=== PATIENT | male | born 1945 | race Caucasian/White ===

== ENCOUNTER 2017-09-02 05:48 | Day surgery (SDC) | payer MEDICARE, OTHER ==
[2017-09-02] MEDS ORDERED: DIPRIVAN 200 MG/20 ML IV ONE (05:49)
[2017-09-02] MEDS ORDERED: Ketamine HCl 50 MG/ML IV ONE (05:49)
[2017-09-02] MEDS ORDERED: Lactated Ringers 1,000 ML IV ONE ×2 (06:23→08:07)
[2017-09-02] MEDS ORDERED: Lactated Ringers 1,000 ML IV SCH (06:30)
[2017-09-02 08:26] VITALS: O2SAT 96
[2017-09-02 08:57] VITALS: BP 112/73; PULSE 65
--- NOTE | 2017-09-02 12:38 | OP ---
SURGERY DATE/TIME: 09/02/2017 0721 PREOPERATIVE DIAGNOSIS: Positive Cologuard test. POSTOPERATIVE DIAGNOSES: 1) Large rectal polyp. 2) Diverticulosis. PROCEDURE: Colonoscopy. SURGEON: Kalin Jo M.D. ANESTHESIA: MAC by Antoni Kidd CRNA. ESTIMATED BLOOD LOSS: Minimal. SPECIMENS: Hot snare polypectomy of rectal polyp. DESCRIPTION OF PROCEDURE: After informed written consent was obtained, the patient was taken to the endoscopy suite. The patient had a positive Cologuard test but no other symptoms. No change in bowel habits or blood in the stool, etc. He was taken to the endoscopy suite and underwent monitored anesthesia. Digital rectal exam showed normal sphincter tone and no internal lesions. The scope was inserted into the rectum and sequentially the entire colonic mucosa was traversed. The level of cecum was reached and verified with direct visualization of ileocecal valve. Upon withdrawal prep was noted to be fair to poor in some areas. There were diffuse scattered diverticulosis. Upon withdrawal reaching the proximal rectum just below the third valve of [place], there was a large pedunculated polyp which was grasped with a snare and cauterized at the base and removed in its entirety. The polyp was retrieved and sent for pathology. No other obvious lesions were present. Retroflexion was performed prior to withdrawal and showed no internal lesions. The scope was removed and the patient was transferred to the recovery room in excellent condition.
== END 2017-09-02 08:58 | disposition home or self-care (01) ==
LOC: SDC 05:48
PROVIDERS: ATTEND Family Medicine
DX: K62.1 Rectal polyp (principal); K57.90 Diverticulosis of intestine, part unspecified, without perforation or abscess without bleeding; I10 Essential (primary) hypertension
CPT/HCPCS: 88305; J2704

== ENCOUNTER 2020-04-24 06:19 | Day surgery (SDC) | payer MEDICARE, OTHER ==
[2020-04-24] MEDS ORDERED: Lactated Ringers 1,000 ML IV SCH (06:30)
[2020-04-24] MEDS ORDERED: DIPRIVAN 200 MG/20 ML IV ONE (07:42)
[2020-04-24 09:22] VITALS: BP 115/72; PULSE 58; O2SAT 95
--- NOTE | 2020-04-24 10:48 | OP ---
SURGERY DATE/TIME: 04/24/2020 0800 PREOPERATIVE DIAGNOSIS: History of colon polyps. POSTOPERATIVE DIAGNOSIS: Severe sigmoid diverticulosis otherwise normal colon. PROCEDURE: Colonoscopy. SURGEON: Dr. Holloway. ANESTHESIA: MAC. Medications given by anesthesia department. HISTORY: The patient is a 74 year-old white male patient presenting now for repeat colonoscopy due to the presence of colon polyp three years ago. The patient was appraised of the risks of the procedure including the risk of perforation, phlebitis, untoward reaction to medication, bleeding and missed lesions. The patient verbalized his understanding and desired to have the procedure performed. DESCRIPTION OF PROCEDURE: The patient was given the medications by the anesthesia department. He had continuous pulse oximetry, ECG monitoring, intermittent blood pressure monitoring and tidal CO2 monitoring during the examination. He was placed in the left lateral decubitus position. A digital rectal examination was performed and revealed normal anal sphincter tone, no masses and normal prostate. The flexible Olympus pediatric colonoscope was used to intubate the rectum. A view of the colon was developed sequentially to the cecum. Upon insertion and withdrawal was noted severe sigmoid diverticulosis. No mucosal lesions however otherwise were encountered. The scope was removed from the patient who tolerated the procedure well and was sent back to OP recovery in good condition. The prep was noted to be good other than sigmoid colon which did have semisolid and solid stool in around the diverticula.
== END 2020-04-24 09:25 | disposition home or self-care (01) ==
LOC: SDC 06:19
PROVIDERS: ATTEND Family Medicine
DX: Z09 Encounter for follow-up examination after completed treatment for conditions other than malignant neoplasm (principal); Z86.010 Personal history of colon polyps; K57.30 Diverticulosis of large intestine without perforation or abscess without bleeding
CPT/HCPCS: 99100; J2704

== ENCOUNTER 2020-04-26 05:45 | Observation (INO) | payer MEDICARE, OTHER ==
[2020-04-26] MEDS ORDERED: NITRO-BID 2% UD PACKETS TOP ONE (05:55)
[2020-04-26] MEDS ORDERED: BABY ASPIRIN 81 MG CHEW PO ONE (05:55)
[2020-04-26] MEDS ORDERED: NITRO-BID 2% UD PACKETS ONE (06:02)
--- NOTE | 2020-04-26 06:16 | ERPHSYRPT ---
<JOAN JENSEN - Last Filed: 04/26/20 07:10> - History of Present Illness Time Seen by Provider: 04/26/20 06:00 Historian: patient Exam Limitations: no limitations Patient Subjective Stated Complaint: pt states, "chest pain that woke me up from sleep" Triage Nursing Assessment: pt arrived to ER, ambulated to rm 6, c/o chest pain to lt upper chest area, which woke him up from sleep. Pt denies pain radiating anywhere. states pain is a squeezing pressure pain. Lungs clear, heart tones reg. No edema noted. Physician History: Patient is a 74-year-old male presents to our ED with complaints of chest pain. Chest pain started early this morning. Chest pain awoke patient from his sleep. Chest pain described as a pressure like squeezing sensation in his mid chest and left upper chest. Patient took Tums and [place] and 1 baby aspirin prior to arrival. Patient did not feel nauseous at the time that chest pain started. Patient states he is feeling somewhat nauseous at this time. Since patient's arrival to our ED pain is now radiating to patient's back. Symptoms are mild to moderate in intensity. No specific worsening or improving factors. Patient denies history of the same. Patient is not a smoker. Patient has a history of hypercholesterolemia. Patient's primary care doctor is Amie. Patient voices no other complaints concerns at this time. Timing/Duration: today Activities at Onset: sleep Quality: pressure Location: substernal Chest Pain Radiation: back Severity of Pain-Max: moderate Severity of Pain-Current: mild Modifying Factors: Improves With: nothing Associated Symptoms: nausea, No abdominal pain, No shortness of breath, No s yncope, No dizziness Prior Chest Pain/Cardiac Workup: no prior chest pain Nitro Today/Relief: no nitro taken today Aspirin Treatment Today: 81 mg x 1 Allergies/Adverse Reactions: Vfbddaa-Sev-Lls Reductase Inhibitor Adverse Reaction (Severe, Verified 04/26/20 05:58) severe cramping of calves Home Medications: Losartan/Hydrochlorothiazide [Losartan-Hctz 50-12.5 mg Tab] 1 each PO DAILY 08/11/17 [History] Omeprazole 20 mg PO DAILY 04/20/20 [History] hydroCHLOROthiazide [Hydrochlorothiazide] 12.5 mg PO DAILY 04/20/20 [History] Hx Tetanus, Diphtheria Vaccination/Date Given: Yes Hx Influenza Vaccination/Date Given: Yes Hx Pneumococcal Vaccination/Date Given: No Immunizations Up to Date: Yes Travel Risk - International Travel Have you traveled outside of the country in past 3 weeks: No - Coronavirus Screening Are you exhibiting any of the following symptoms?: No Close contact with a COVID-19 positive Pt in past 14-21 Days: No - Review of Systems Constitutional: No Symptoms, No Fever, No Chills Eyes: No Symptoms Ears, Nose, & Throat: No Symptoms Respiratory: No Symptoms, No Cough, No Dyspnea Cardiac: No Symptoms, No Chest Pain, No Edema, No Syncope Abdominal/Gastrointestinal: No Symptoms, No Abdominal Pain, No Nausea, No Vomiting, No Diarrhea Genitourinary Symptoms: No Symptoms, No Dysuria Musculoskeletal: No Symptoms, No Back Pain, No Neck Pain Skin: No Symptoms, No Rash Neurological: No Symptoms, No Dizziness, No Focal Weakness, No Sensory Changes Psychological: No Symptoms Endocrine: No Symptoms Hematologic/Lymphatic: No Symptoms Immunological/Allergic: No Symptoms All Other Systems: Reviewed and Negative - Past Medical History Pertinent Past Medical History: Yes Neurological History: No Pertinent History ENT History: No Pertinent History Cardiac History: High Cholesterol, Hypertension Respiratory History: Sleep Apnea Endocrine Medical History: No Pertinent History Musculoskeletal History: No Pertinent History GI Medical History: GERD History: No Pertinent History Psycho-Social History: No Pertinent History Male Reproductive Disorders: No Pertinent History Other Medical History: hx polyps - Past Surgical History Past Surgical History: Yes Neuro Surgical History: No Pertinent History Cardiac: No Pertinent History Respiratory: No Pertinent History Gastrointestinal: Appendectomy Genitourinary: No Pertinent History Musculoskeletal: Amputation, Other Male Surgical History: No Pertinent History Other Surgical History: back, left foot toe removed, rt knee, left hand, appendix, colonoscopy - Social History Smoking Status: Former smoker Exposure to second hand smoke: No Drug Use: marijuana Patient Lives Alone: No - Physical Exam General Appearance: no apparent distress, alert Eye Exam: PERRL/EOMI, eyes nml inspection Ears, Nose, Throat Exam: normal ENT inspection, moist mucous membranes Neck Exam: normal inspection, non-tender, supple, full range of motion Respiratory Exam: normal breath sounds, lungs clear, No respiratory distress Cardiovascular Exam: regular rate/rhythm, normal heart sounds Gastrointestinal/Abdomen Exam: soft, No tenderness, No mass Back Exam: normal inspection, No CVA tenderness, No vertebral tenderness Extremity Exam: normal inspection, normal range of motion Neurologic Exam: alert, oriented x 3, cooperative, normal mood/affect, sensation nml, No motor deficits Skin Exam: normal color, warm, dry SpO2 Interpretation: normal SpO2: 97 O2 Delivery: Room Air - Course Nursing assessment & vital signs reviewed: Yes EKG Interpreted by Me: RATE (68), Sinus Rhythm, NORMAL AXIS, NORMAL INTERVALS - Progress Progress: improved Air Movement: good Progress Note: Patient endorsed to Dr. Bruno at 07 100. D-dimer elevated. CTA chest ordered and pending. Initial troponin negative. Potassium 3.4. Oral potassium replacement ordered. Remaining work-up pending. Dr. Bruno to make final d isposition. 04/26/20 07:12 Blood Culture(s) Obtained: No Antibiotics given: No - Departure Clinical Impression: Chest pain, D-dimer, elevated, Hypokalemia Condition: Stable Critical Care Time: No Referrals: SAWYER VALLADARES [Primary Care Provider] - <JANE BRUNO - Last Filed: 04/26/20 09:48> - Nursing Vital Signs Nursing Vital Signs: Initial Vital Signs Temperature 97.2 F 04/26/20 05:45 Pulse Rate 70 04/26/20 05:45 Respiratory Rate 20 04/26/20 05:45 Blood Pressure 162/81 04/26/20 05:45 O2 Sat by Pulse Oximetry 97 04/26/20 05:45 Pain Scale Pain Intensity 5 Ordered Tests: Active Orders 24 hr Category Date Time Status Civil Cadd Technician STAT Care 04/26/20 05:56 Active EKG-ER Only STAT Care 04/26/20 05:55 Active IV Insertion STAT Care 04/26/20 05:55 Active Pulse Oximetry (ED) STAT Care 04/26/20 05:55 Active ABDOMEN AND PELVIS W CONTRAST [CT] Stat Exams 04/26/20 07:20 Completed CHEST 1 VIEW (PORTABLE) Stat Exams 04/26/20 05:56 Completed CHEST WITH CONTRAST [CT] Stat Exams 04/26/20 07:07 Completed CBC W DIFF Stat Lab 04/26/20 05:55 Completed CMP Stat Lab 04/26/20 05:55 Completed D-DIMER QUANTITATIVE Stat Lab 04/26/20 05:55 Completed NT PRO BNP Stat Lab 04/26/20 05:55 Completed TROPONIN Q3H Lab 04/26/20 05:55 Completed TROPONIN Q3H Lab 04/26/20 09:05 Completed TROPONIN Q3H Lab 04/26/20 12:00 Ordered TROPONIN Q3H Lab 04/26/20 15:00 Ordered TROPONIN Q3H Lab 04/26/20 18:00 Ordered Transfer Order Routine Transfer 04/26/20 Ordered Medication Summary Discontinued Medications Generic Name Dose Route Start Last Admin Trade Name Luciana PRN Reason Stop Dose Admin Aspirin 324 mg 04/26/20 05:55 04/26/20 06:05 Baby Aspirin 81 Mg Chew PO 04/26/20 05:56 Not Given STAT ONE Morphine Sulfate 4 mg 04/26/20 09:40 Morphine Sulfate 4 Mg Inj IV 04/26/20 09:41 STAT ONE Nitroglycerin 1 gm 04/26/20 05:55 04/26/20 06:06 Nitro-Bid 2% Ud Packets TOP 04/26/20 05:56 1 gm STAT ONE Administration Nitroglycerin Confirm 04/26/20 06:02 Nitro-Bid 2% Ud Packets Administered 04/26/20 06:03 Dose 1 gm .ROUTE .STK-MED ONE Ondansetron HCl 4 mg 04/26/20 06:17 04/26/20 06:19 Zofran 4 Mg/2 Ml Vial IV 04/26/20 06:18 4 mg STAT ONE Administration Ondansetron HCl Confirm 04/26/20 06:18 Zofran 4 Mg/2 Ml Vial Administered 04/26/20 06:19 Dose 4 mg .ROUTE .STK-MED ONE Ondansetron HCl 4 mg 04/26/20 09:40 Zofran 4 Mg/2 Ml Vial IV 04/26/20 09:41 STAT ONE Potassium Chloride 40 meq 04/26/20 07:06 04/26/20 07:08 Klor Con 10 Meq PO 04/26/20 07:07 40 meq STAT ONE Administration Potassium Chloride Confirm 04/26/20 07:07 Klor Con 10 Meq Administered 04/26/20 07:08 Dose 40 meq PO .STK-MED ONE Lab/Rad Data: Laboratory Result Diagrams 04/26/20 05:55 04/26/20 05:55 Laboratory Results 04/26/20 04/26/20 04/26/20 Range/Units 09:05 05:55 05:55 WBC (4.0-10.5) K/mm3 RBC (4.1-5.6) M/mm3 Hgb (12.5-18.0) gm/dl Hct (42-50) % MCV (78-100) fl MCH (26-32) pg MCHC (32-36) g/dl RDW (11.5-14.0) % Plt Count (150-450) K/mm3 MPV (7.5-11.0) fl Gran % (36.0-66.0) % Eos # (Auto) (0-0.5) Absolute Lymphs (auto) (1.0-4.6) Absolute Monos (auto) (0.0-1.3) Lymphocytes % (24.0-44.0) % Monocytes % (0.0-12.0) % Eosinophils % (0.00-5.0) % Basophils % (0.0-0.4) % Absolute Granulocytes (1.4-6.9) Basophils # (0-0.4) D-Dimer 557 H* (215-500) ng/mL Sodium (137-145) mmol/L Potassium (3.5-5.1) mmol/L Chloride (98-107) mmol/L Carbon Dioxide (22-30) mmol/L Anion Gap (5-15) MEQ/L BUN (9-20) mg/dL Creatinine (0.66-1.25) mg/dL Estimated GFR ML/MIN Glucose (74-106) mg/dL Calcium (8.4-10.2) mg/dL Total Bilirubin (0.2-1.3) mg/dL AST (17-59) U/L ALT (0-50) U/L Alkaline Phosphatase (38-126) U/L Troponin I < 0.012 < 0.012 (0.000-0.034) ng/mL NT-Pro-B Natriuret Pep (0-900) pg/mL Serum Total Protein (6.3-8.2) g/dL Albumin (3.5-5.0) g/dL 04/26/20 04/26/20 Range/Units 05:55 05:55 WBC 9.6 (4.0-10.5) K/mm3 RBC 4.79 (4.1-5.6) M/mm3 Hgb 14.4 (12.5-18.0) gm/dl Hct 42.9 (42-50) % MCV 89.6 (78-100) fl MCH 30.1 (26-32) pg MCHC 33.6 (32-36) g/dl RDW 13.8 (11.5-14.0) % Plt Count 260 (150-450) K/mm3 MPV 8.8 (7.5-11.0) fl Gran % 57.1 (36.0-66.0) % Eos # (Auto) 0.11 (0-0.5) Absolute Lymphs (auto) 3.39 (1.0-4.6) Absolute Monos (auto) 0.60 (0.0-1.3) Lymphocytes % 35.2 (24.0-44.0) % Monocytes % 6.2 (0.0-12.0) % Eosinophils % 1.1 (0.00-5.0) % Basophils % 0.4 (0.0-0.4) % Absolute Granulocytes 5.48 (1.4-6.9) Basophils # 0.04 (0-0.4) D-Dimer (215-500) ng/mL Sodium 141 (137-145) mmol/L Potassium 3.4 L (3.5-5.1) mmol/L Chloride 102 (98-107) mmol/L Carbon Dioxide 28 (22-30) mmol/L Anion Gap 13.6 (5-15) MEQ/L BUN 29 H (9-20) mg/dL Creatinine 1.21 (0.66-1.25) mg/dL Estimated GFR > 60.0 ML/MIN Glucose 134 H (74-106) mg/dL Calcium 9.7 (8.4-10.2) mg/dL Total Bilirubin 0.30 (0.2-1.3) mg/dL AST 47 (17-59) U/L ALT 48 (0-50) U/L Alkaline Phosphatase 61 (38-126) U/L Troponin I (0.000-0.034) ng/mL NT-Pro-B Natriuret Pep 33.0 (0-900) pg/mL Serum Total Protein 8.0 (6.3-8.2) g/dL Albumin 4.7 (3.5-5.0) g/dL - Progress Progress Note: 04/26/20 09:42 Medical decision making: This patient has chest pain that began this morning. He does not have known coronary artery disease or myocardial infarction history. His CTA of the chest shows no aortic dissection or aortic abnormality. There are no pulmonary emboli. We also did a CAT scan of his abdomen and pelvis with contrast and there is no evidence of any abdominal aortic aneurysm or aortic dissection. There is no acute intra-abdominal or intrapelvic findings. Patient states that the pain is now more in his epigastric area and less in his chest. I spoke with Dr. Valladares, the patient's primary care physician. I reviewed the patient's history, clinical findings, and results of his laboratory data, EKG and x-rays. We will place the patient observation on a monitored bed and rule out myocardial infarction. Discussed with : Jazmine Counseled pt/family regarding: lab results, diagnosis, rad results - Departure Departure Disposition: Observation Critical Care Time: No
[2020-04-26] MEDS ORDERED: Zofran 4 MG/2 ML VIAL IV ONE ×2 (06:17→09:40)
[2020-04-26] MEDS ORDERED: Zofran 4 MG/2 ML VIAL ONE ×2 (06:18→10:48)
[2020-04-26 06:21] LABS: Absolute Neutrophil Ct (ANC) 5.48 (1.4-6.9); BASOPHIL % 0.4 % (0.0-0.4); Basophil (Absolute #) 0.04 (0-0.4); Eosinophil % 1.1 % (0.00-5.0); Eosinophil (Absolute #) 0.11 (0-0.5); Hematocrit 42.9 % (42-50); Hemoglobin 14.4 gm/dl (12.5-18.0); Lymphocyte (Absolute #) 3.39 (1.0-4.6); Lymphocytes % 35.2 % (24.0-44.0); Mean Cell Volume 89.6 fl (78-100); Mean Corpuscular Hemoglobin 30.1 pg (26-32); Mean Corpuscular Hgb Concent. 33.6 g/dl (32-36); Mean Platelet Volume 8.8 fl (7.5-11.0); Monocytes % 6.2 % (0.0-12.0); Neutrophil % 57.1 % (36.0-66.0); Platelet Count 260 K/mm3 (150-450); Red Blood Count 4.79 M/mm3 (4.1-5.6); Red Cell Distribution Width 13.8 % (11.5-14.0); White Blood Count 9.6 K/mm3 (4.0-10.5)
[2020-04-26 06:53] LABS: ALBUMIN 4.7 g/dL (3.5-5.0); ALKALINE PHOSPHATASE 61 U/L (38-126); ANION GAP 13.6 MEQ/L (5-15); BLOOD UREA NITROGEN 29 mg/dL (9-20); CHLORIDE 102 mmol/L (98-107); Calcium 9.7 mg/dL (8.4-10.2); Carbon Dioxide 28 mmol/L (22-30); Creatinine 1 1.21 mg/dL (0.66-1.25); EST GLOMERULAR FILTRATION RATE > 60.0 ML/MIN; Glucose 134 mg/dL (74-106); Potassium 3.4 mmol/L (3.5-5.1); SGOT/AST 47 U/L (17-59); SGPT/ALT 48 U/L (0-50); SODIUM 141 mmol/L (137-145)
[2020-04-26] MEDS ORDERED: Klor Con 10 MEQ PO ONE ×2 (07:06→07:07)
--- NOTE | 2020-04-26 08:44 | XRAY ---
Indication: Chest pain. Elevated d-dimer. Conventional contrast enhanced CTA chest performed using 100 cc Isovue 370 contrast and PE protocol. Two-dimensional sagittal and coronal reformatted images obtained. Additional 3-dimensional reformatted images obtained using a separate workstation. Comparison: None There is good opacification of the pulmonary arteries to include the lobar and segmental branches. No pulmonary embolus. Heart is not enlarged. Aorta is minimally arteriosclerotic without aneurysm/dissection. Small left infrahilar calcified node. No pathologic mediastinal/hilar lymphadenopathy. Small hiatal hernia. Lungs demonstrate mild bilateral dependent atelectasis and tiny left upper lobe calcified granuloma. No suspicious pulmonary mass, infiltrate, or effusion. Bony thorax intact with mild degenerative changes throughout the spine. CTA abdomen/pelvis reported separately. Impression: 1. Negative pulmonary embolus. 2. Remaining CTA chest with contrast exam is negative with incidental small hiatal hernia and old granulomatous disease.
--- NOTE | 2020-04-26 08:47 | XRAY ---
Indication: Abdomen pain. AAA. Conventional contrast enhanced CTA abdomen/pelvis performed using 100 cc Isovue 370 contrast. Two-dimensional sagittal and coronal reformatted images obtained. Additional 3-dimensional reformatted images obtained using a separate workstation. Comparison: CT renal stone study February 11, 2010 CTA chest reported separately. Minimally increasing scattered aortoiliac calcifications. No aneurysm or AAA. Normal CTA appearance to the celiac, superior mesenteric, and inferior mesenteric arteries. A single renal artery supplies each kidney with very minimal left main renal artery calcification. No renal artery critical stenosis/obstruction, or AV malformation. Noncontrasted stomach and bowel loops are nonobstructed. Appendectomy reported. Again mild diffuse scattered colonic diverticulosis greatest sigmoid colon. No free fluid/air. Normal renal enhancement and excretion again with a few bilateral renal cysts. Largest renal cyst measures 3.5 cm right mid pole, previously 1 cm. No suspicious solid renal mass, hydronephrosis, or hydroureter. Liver again demonstrates mild fatty attenuation with 4 mm right lobe hepatic cyst in the dome of the diaphragm. Remaining liver, gallbladder, pancreas, spleen, adrenal glands, kidneys, ureters, and bladder appear unremarkable. No pathologic retroperitoneal lymphadenopathy. Osseous structures intact again with mild degenerative changes throughout the thoracolumbar spine and moderate degenerative changes of both hips. No ventral or inguinal hernias. Impression: 1. CTA abdomen/pelvis again demonstrates minimal aortoiliac calcifications. Negative for AAA/aortic dissection. 2. Again incidental colonic diverticulosis, bilateral renal cysts, fatty liver with tiny cyst, and chronic bony findings.
--- NOTE | 2020-04-26 08:49 | XRAY ---
Indication: Chest pain and nausea. Comparison: None Portable chest clear. Heart and mediastinal structures within normal limits. Bony thorax intact with moderate degenerative changes. Impression: Nonacute chest with chronic features.
[2020-04-26] MEDS ORDERED: MORPHINE SULFATE 4 MG INJ IV ONE (09:40)
[2020-04-26] MEDS ORDERED: MORPHINE SULFATE 4 MG INJ ONE (10:48)
[2020-04-26 10:53] LABS: INFLUENZA A NEGATIVE (NEGATIVE); INFLUENZA B NEGATIVE (NEGATIVE); RESPIRATORY SYNCTIAL VIRUS NEGATIVE (Negative)
[2020-04-26] MEDS ORDERED: MORPHINE SULFATE 4 MG INJ IV PRN (11:44)
[2020-04-26] MEDS ORDERED: TYLENOL 325 MG PO PRN (11:44)
[2020-04-26] MEDS ORDERED: Zofran 4 MG/2 ML VIAL IV PRN (11:44)
[2020-04-26] MEDS: Pepcid 20 MG VIAL IV SCH (13:06)
[2020-04-26] MEDS: hydroDIURIL 25 MG PO SCH (18:38)
[2020-04-26] MEDS: Protonix 40MG Tablet PO SCH (18:38)
[2020-04-26] MEDS: Cozaar 50 MG PO SCH (18:39)
[2020-04-27 05:25] LABS: Absolute Neutrophil Ct (ANC) 9.55 (1.4-6.9); BASOPHIL % 0.1 % (0.0-0.4); Basophil (Absolute #) 0.02 (0-0.4); Eosinophil % 0.2 % (0.00-5.0); Eosinophil (Absolute #) 0.03 (0-0.5); Hematocrit 42.4 % (42-50); Hemoglobin 13.8 gm/dl (12.5-18.0); Lymphocytes % 19.5 % (24.0-44.0); Mean Corpuscular Hemoglobin 29.3 pg (26-32); Mean Corpuscular Hgb Concent. 32.5 g/dl (32-36); Mean Platelet Volume 9.4 fl (7.5-11.0); Monocyte (Absolute #) 1.16 (0.0-1.3); Monocytes % 8.7 % (0.0-12.0); Neutrophil % 71.5 % (36.0-66.0); Platelet Count 250 K/mm3 (150-450); Red Blood Count 4.71 M/mm3 (4.1-5.6); Red Cell Distribution Width 13.9 % (11.5-14.0); White Blood Count 13.4 K/mm3 (4.0-10.5)
[2020-04-27 06:14] LABS: ALBUMIN 4.5 g/dL (3.5-5.0); ALKALINE PHOSPHATASE 52 U/L (38-126); ANION GAP 14.8 MEQ/L (5-15); BLOOD UREA NITROGEN 25 mg/dL (9-20); CHLORIDE 98 mmol/L (98-107); Calcium 9.2 mg/dL (8.4-10.2); Carbon Dioxide 30 mmol/L (22-30); Creatinine 1 1.13 mg/dL (0.66-1.25); EST GLOMERULAR FILTRATION RATE > 60.0 ML/MIN; Glucose 124 mg/dL (74-106); Potassium 4.3 mmol/L (3.5-5.1); SGOT/AST 49 U/L (17-59); SGPT/ALT 46 U/L (0-50); SODIUM 138 mmol/L (137-145); Total Protein 7.9 g/dL (6.3-8.2)
--- NOTE | 2020-04-27 07:53 | HP ---
CHIEF COMPLAINT: Chest pain. HISTORY OF PRESENT ILLNESS: The patient is a 74 year-old white male patient who presented to the emergency room awakened by chest pain which he reported radiated from the chest to his left upper quadrant. The patient reports it is a squeezing-type pain with no significant radiation other than the upper abdomen. The patient reports he has been having similar episodes over the past couple of months where he will have an occasional discomfort that resolved and was not this bad. The patient reports he has been avoiding fatty meals as this seem to bother his stomach attributing to his right upper quadrant. PAST MEDICAL/SURGICAL HISTORY: Significant for hypertension for which he takes losartan and hydrochlorothiazide. He also take omeprazole 20 mg daily. HOME MEDICATIONS: Losartan and hydrochlorothiazide. Omeprazole 20 mg daily. ALLERGIES: STATIN-TYPE MEDICATIONS. PHYSICAL EXAMINATION: The patient's vital signs on admission show his temperature to be 97.2F, pulse 70, respiratory rate 20 and blood pressure 162/81. O2 saturation was 97%. HEENT: Normocephalic, atraumatic. Pupils equal round reactive to light. Extraocular movements intact. Oropharynx is pink and moist. NECK: Supple without lymphadenopathy, thyromegaly or JVD. CHEST: Clear to auscultation with good air movement bilaterally. HEART: Regular rate and rhythm. ABDOMEN: Tender in the right upper quadrant. No hepatosplenomegaly or masses are felt. EXTREMITIES: Without cyanosis, clubbing or edema. NEUROLOGIC: The patient is alert and oriented x3. LAB DATA AND TESTS: Laboratory studies thus far have shown troponins all less than 0.012 on multiple drawls. He has had a normal CBC. COVID, influenza and RSV were all negative. His metabolic panel showed his sugar 134, BUN 29, creatinine 1.21, potassium slightly low at 3.4. Liver enzymes were normal. ProBNP was normal. His D-dimer was slightly elevated at 557. His follow up CT scan of the chest was negative for pulmonary embolism and essentially negative other than old granulomatous disease. He also had a CT of the abdomen and pelvis with contrast revealing negative for abdominal aortic aneurysm or aortic dissection. He had incidental colonic diverticulosis, bilateral renal cysts and fatty liver cyst. The gallbladder was not specifically mentioned as being abnormal. Chest x-ray showed nonacute with chronic features. His EKG showed 12 lead being normal sinus rhythm with borderline left axis deviation and slight intraventricular conduction delay of right bundle branch block type. ASSESSMENT: Again with the patient being tender in the right upper quadrant, we will order gallbladder ultrasound for the morning. He is here to rule out myocardial infarction otherwise. He has received morphine which has helped his pain and he is currently resting comfortably. He reports he is not hungry at this time. He is on a clear liquid diet. Otherwise he will be NPO after midnight to get his gallbladder ultrasound performed in the morning.
[2020-04-27] MEDS ORDERED: NON-FORMULARY ITEM (Losartan/Hydrochlorothiazide [Losartan-Hctz 50-12.5 Mg Tab] 1 EACH) PO SCH (10:00)
[2020-04-27] MEDS ORDERED: NON-FORMULARY ITEM (Hydrochlorothiazide [Hydrochlorothiazide] 12.5 MG) PO SCH (10:00)
[2020-04-27] MEDS ORDERED: NON-FORMULARY ITEM (Omeprazole [Omeprazole] 20 MG) PO SCH (10:00)
--- NOTE | 2020-04-27 10:06 | XRAY ---
Indication: Right upper quadrant pain. Nausea and vomiting. Two-dimensional gallbladder sonogram performed. Comparison: None Gallbladder normally distended with mild sludge and tiny gravel in the dependent portion. Gallbladder wall is thickened measuring 3.7 mm No pericholecystic fluid. Common bile duct measures 3.6 mm. No intrahepatic biliary distention. Remaining visualized liver, pancreas, and right kidney sonographically unremarkable. Right kidney measures 11.3 cm in length. No ascites. Impression: Gallbladder sludge and tiny gravel. There is also gallbladder wall thickening without pericholecystic fluid or biliary distention. Rule out chronic cholecystitis.
[2020-04-27] MEDS: Protonix 40MG Tablet PO SCH (12:05)
[2020-04-27] MEDS: hydroDIURIL 25 MG PO SCH (12:11)
[2020-04-27] MEDS: Cozaar 50 MG PO SCH (12:12)
[2020-04-27] MEDS ORDERED: Lactated Ringers 1,000 ML IV SCH (13:30)
[2020-04-27] MEDS: Pepcid 20 MG VIAL IV SCH (13:48)
[2020-04-27] MEDS ORDERED: MEFOXIN 2 GM PREMIX** 2 GM/50 ML ML IV SCH (14:00)
[2020-04-27] MEDS ORDERED: Sensorcaine 0.25% 10 ML ONE ×2 (14:37→15:19)
[2020-04-27] MEDS ORDERED: DIPRIVAN 200 MG/20 ML IV ONE (15:01)
[2020-04-27] MEDS ORDERED: Versed 2 MG/2 ML Injection ONE (15:01)
[2020-04-27] MEDS ORDERED: Zemuron 100 MG/10 ML ONE (15:01)
[2020-04-27] MEDS ORDERED: SUBLIMAZE 250 MCG/5 ML ONE (15:01)
--- NOTE | 2020-04-27 15:25 | CONS ---
CONSULT DATE: 04/27/2020 REASON FOR CONSULT: Right upper quadrant abdominal pain. HISTORY: The patient is an 84 year-old male who presented yesterday to the emergency department due to chest pain. He reports a couple of years at least of postprandial abdominal pain worse with greasy food, this is becoming more frequent and bothersome. The day of presentation it was severe and he actually thought he was having a heart attack so he came into the emergency department. Initial work up negative cardiac and follow up troponins also negative. CT chest, abdomen and pelvis and ultrasound of right upper quadrant showed sludge, stones, wall thickening of gallbladder and mild leukocytosis. Surgery consulted for cholecystectomy. Otherwise the patient's review of systems is negative. REVIEW OF SYSTEMS: Twelve point review of systems otherwise negative. PAST MEDICAL HISTORY: HTN, HLD, GERD MEDS: reviewed ALLERGIES: statins SURGICAL HX: appendectomy, orthopedic procedures, C scope 04/3020 SOCIAL HX: no tob FAMILY HX: colon ca mother PHYSICAL EXAMINATION: Vitals are normal. HEENT: Normocephalic, atraumatic. Sclerae anicteric. CHEST: Nonlabored respirations. HEART: Regular rate and rhythm. ABDOMEN: Nondistended, soft, tenderness in the right upper quadrant. No rebound or guarding. LAB DATA AND TESTS: Laboratory findings: Mild leukocytosis. Liver function tests are normal. Ultrasound with gallstones, sludge, wall thickening without pericholecystic fluid, normal bile duct diameter. CT chest, abdomen and pelvis without other acute abnormalities. ASSESSMENT AND PLAN: A 74 year-old male with acute cholecystitis. I discussed with patient options of cholecystectomy or conservative treatment and he wants to proceed with cholecystectomy. Planning for a laparoscopic cholecystectomy possible open.
[2020-04-27] MEDS ORDERED: BRIDION 200MG/2ML IV ONE (16:05)
[2020-04-27] MEDS: Unasyn 1.5GM / NaCl 100ML 1.5 GM/100 ML IVPB IV SCH ×2 (18:06→23:38)
[2020-04-27] MEDS: NORCO 5/325 MG PO PRN (20:34)
[2020-04-28] MEDS: Unasyn 1.5GM / NaCl 100ML 1.5 GM/100 ML IVPB IV SCH (05:53)
[2020-04-28] MEDS: NORCO 5/325 MG PO PRN (05:53)
[2020-04-28 06:40] LABS: ALBUMIN 4.3 g/dL (3.5-5.0); ALKALINE PHOSPHATASE 61 U/L (38-126); ANION GAP 13.3 MEQ/L (5-15); BLOOD UREA NITROGEN 22 mg/dL (9-20); CHLORIDE 96 mmol/L (98-107); Calcium 8.9 mg/dL (8.4-10.2); Carbon Dioxide 30 mmol/L (22-30); Creatinine 1 0.96 mg/dL (0.66-1.25); Direct Bilirubin 0.1 mg/dL (0.0-0.4); EST GLOMERULAR FILTRATION RATE > 60.0 ML/MIN; Glucose 113 mg/dL (74-106); Potassium 3.9 mmol/L (3.5-5.1); SGOT/AST 58 U/L (17-59); SGPT/ALT 55 U/L (0-50); SODIUM 135 mmol/L (137-145); Total Protein 7.8 g/dL (6.3-8.2)
[2020-04-28 06:58] LABS: Hematocrit 42.9 % (42-50); Hemoglobin 14.4 gm/dl (12.5-18.0); Mean Cell Volume 89.9 fl (78-100); Mean Corpuscular Hemoglobin 30.2 pg (26-32); Mean Corpuscular Hgb Concent. 33.6 g/dl (32-36); Mean Platelet Volume 9.7 fl (7.5-11.0); Platelet Count 235 K/mm3 (150-450); Red Blood Count 4.77 M/mm3 (4.1-5.6); Red Cell Distribution Width 13.6 % (11.5-14.0); White Blood Count 12.8 K/mm3 (4.0-10.5)
[2020-04-28 07:02] VITALS: BP 130/69; PULSE 77; O2SAT 94
[2020-04-28] MEDS: hydroDIURIL 25 MG PO SCH (09:13)
[2020-04-28] MEDS: Protonix 40MG Tablet PO SCH (09:15)
[2020-04-28] MEDS: Cozaar 50 MG PO SCH (09:15)
[2020-04-28] MEDS: Pepcid 20 MG VIAL IV SCH (09:16)
--- NOTE | 2020-04-30 11:05 | OP ---
SURGERY DATE/TIME: 04/27/2020 1459 PREOPERATIVE DIAGNOSIS: Acute cholecystitis. POSTOPERATIVE DIAGNOSES: Acute cholecystitis. PROCEDURE: Laparoscopic cholecystectomy. SURGEON: Faustino Watkins M.D. ANESTHESIA: General. ESTIMATED BLOOD LOSS: 50. CONDITION: Patient condition stable. COMPLICATIONS: None. SPECIMEN: Gallbladder. HISTORY: The patient is 74 year-old male with history of symptoms consistent with biliary colic presents with chest pain, cardiac rule out, cardiac negative. Pain then was more right upper quadrant. Ultrasound with wall thickening, stone and sludge. CT chest, abdomen and pelvis nothing else. Exam tenderness in the right upper quadrant. I discussed with the patient the risk of infection, bleeding, injury to nearby structures, retained common bile duct, stone, hernia and he elected to proceed with surgery. FINDINGS: Partially necrotic gallbladder that fell apart on retraction. Critical view obtained. There is a short cystic duct and the white load NOAH stapler was used at the fundus cystic duct junction. DESCRIPTION OF PROCEDURE: The patient was brought to the operating room. General anesthesia induced. He was placed supine with arms up. SCD's were applied and on. He was routinely prepped and draped. Time out performed. He was treated with preoperative antibiotic. Veress needle inserted in left upper quadrant. Opening pressure was 5. Pneumoperitoneum established. A 5 mm Optiview trocar placed in left upper quadrant. Abdomen was surveyed. There were some mild omental adhesions to his prior appendectomy scar. An 11 mm trocar placed supraumbilically. The omental adhesions taken down from the right mid abdomen. Two additional 5 mm trocars were placed in the right upper quadrant. The abdomen was surveyed. The gallbladder was distended. It was attempted to be retracted but it was very friable, distended and did rupture on retraction. There was some spillage of bile. No obvious spillage of stones. The cystic duct and cystic artery then dissected out with a combination of L-hook cautery, [place], blunt dissection. There is acute cholecystitis with edema, inflammation. The cystic duct was clearly identified. It appeared to be short and the cystic common junction did seem to be tenting up. The cystic artery clearly identified also. Critical view obtained. Given the short duct it was decided to take the cystic duct at the gallbladder cystic duct junction with a white load NOAH stapler. The artery was also taken at the same time. The left upper quadrant port had been upsized to a 12 port. The gallbladder was then taken with cautery off the liver bed. The gallbladder was then placed in a specimen bag and extracted. The left upper quadrant port site did require some dilation to extract it. The port was re-inserted. The right upper quadrant re-inspected. Suction irrigated until clear. The staple line was healthy. There was good hemostasis. The left upper quadrant port site was then closed with interrupted 0 Vicryl suture passers. The umbilical trocar site then closed with 0 Vicryl interrupted suture passer. The right mid port removed under direct visualization. The right upper quadrant port used for desufflation and then removed. The wound is irrigated out. The skin closed with 4-0 Vicryl sutures. Steri-Strips and sterile dressings applied. The patient tolerated the procedure well. All counts were correct. He was extubated and taken to recovery in stable condition.
== END 2020-04-28 11:23 | disposition home or self-care (01) ==
LOC: ED 05:45 → MED SURG 11:32
PROVIDERS: ADMIT Family Medicine; ATTEND Family Medicine
DX: K81.0 Acute cholecystitis (principal); R07.9 Chest pain, unspecified; I10 Essential (primary) hypertension; E78.00 Pure hypercholesterolemia, unspecified; R10.11 Right upper quadrant pain; Z79.899 Other long term (current) drug therapy; Z20.828 Contact with and (suspected) exposure to other viral communicable diseases
CPT/HCPCS: 0241U; 36000; 36415; 47562; 71045; 71260; 74177; 76705; 80048; 80053; 80076; 83690; 83880; 84145; 84484; 85025; 85027; 85379; 93005; 93041; 93268; 94760; 96374; 96375; 96376; 99284; G0378; 88304; 99100; J0295; J0694; J2250; J2270; J2405; J2704; J3010; A9270-GY